=== PATIENT | female | born 1980 | race African-American/Black ===

== ENCOUNTER 2018-12-06 04:17 | Observation (INO) | payer BC ==
[2018-12-06] VITALS (9 sets, daily range): BP systolic 107–139; BP diastolic 60–85; Ht 154.9 cm; Wt 110.9 kg
[~2018-12-06] VITALS: Ht 154.9 cm; Wt 110.9 kg
[2018-12-06] MEDS ORDERED: LOSARTAN/HCTZ (04:28)
[2018-12-06] MEDS ORDERED: TOPAMAX50 MG PO (04:29)
[2018-12-06] MEDS ORDERED: BETAGAN 0.5% OPH5 ML EACH EYE (04:29)
[2018-12-06] MEDS ORDERED: XALATAN 0.0052.5 ML EACH EYE (04:30)
[2018-12-06 04:44] LABS: BASOPHILS 0.2 % (0-2); EOSINOPHILS 0.4 % (0-7); HEMATOCRIT 34.2 % (36.0-48.0); HEMOGLOBIN 11.5 g/dL (12-16); IMMATURE GRANULOCYTES 0.1 % (0-5); MCH 28.2 pg (26.0-34.0); MCHC 33.6 g/dL (31.0-37.0); MCV 83.8 fL (80.0-100.0); MEAN PLATELET VOLUME 8.7 fL (7.4-10.4); MONOCYTES 4.2 % (2-11); NEUTROPHILS 73.1 % (40-80); PLATELET COUNT 372 10x3/uL (130-400); RBC 4.08 10x6/uL (4.00-5.40); RDW 15.6 % (11.5-14.5); WBC 11.4 10x3/uL (4.8-10.8)
--- NOTE | 2018-12-06 04:48 | NUR ---
FIRST NIRTO ADMINISTERED CP RATED 4/10
--- NOTE | 2018-12-06 04:58 | NUR ---
SECOND NITRO ADMINISTERED RATES PAIN 2/10.
[2018-12-06 05:00] LABS: APTT 31.5 SECONDS (22.8-39.4); INR 1.06 (0.85-1.17); PROTIME 13.3 SECONDS (11.6-15.0)
[2018-12-06 05:02] LABS: ALBUMIN 4.1 g/dL (3.4-5.0); ALKALINE PHOSPHATASE 73 U/L (46-116); ALT (SGPT) 19 U/L (10-68); BILIRUBIN - TOTAL 0.53 mg/dL (0.2-1.3); CALC OSMOLALITY 282 mosm/kg (275-300); CALCIUM 8.9 mg/dL (8.5-10.1); CARBON DIOXIDE 24.4 mmol/L (21.0-32.0); CHLORIDE - SERUM 103 mmol/L (98-107); GLUCOSE 131 mg/dL (74-106); POTASSIUM - SERUM 3.2 mmol/L (3.5-5.1); PROTEIN - SERUM 8.7 g/dL (6.4-8.2); SODIUM 140 mmol/L (136-145); UREA NITROGEN 18 mg/dL (7-18); eGFR NON AFRICAN AMERICAN 65 mL/min (90-120)
--- NOTE | 2018-12-06 05:05 | NUR ---
3RD NITRO HELD, NO CHEST PAIN AT THIS TIME.
[2018-12-06 05:12] LABS: CKMB 1.3 U/L (0.0-3.6); CREATINE KINASE 199 UL (21-215); MAGNESIUM - SERUM 1.8 mg/dL (1.8-2.4); TROPONIN-I < 0.017 ng/mL (0.000-0.060)
--- NOTE | 2018-12-06 06:25 | NUR ---
lab at bedside. pt denies needs, call light within reach, will continue to monitor.
--- NOTE | 2018-12-06 07:06 | NUR ---
BEDSIDE REPORT HANDED OFF TO EVETTE DIAZ
--- NOTE | 2018-12-06 14:03 | NUR ---
PT TO STRESS TEST AT 1400
--- NOTE | 2018-12-06 14:03 | NUR ---
PT TO BE ADMITTED TO ROOM 2114. ATTEMPTED TO CALL REPORT X 2.
--- NOTE | 2018-12-06 14:09 | NUR ---
REPORT TO EVETTE NICHOLS.
[2018-12-06] MEDS ORDERED: COZAAR50 MG PO (14:42)
[2018-12-06] MEDS ORDERED: HYDROCHLOROTH12.5 M1 PO (14:43)
--- NOTE | 2018-12-06 15:15 | MORECARE ---
CASE MANAGEMENT DISCHARGE SUMMARY PATIENT: JANESSA SOMERS UNIT: [id number] ADM DATE: 12/06/18 AGE: 38 : 76 SEX: F ROOM/BED: D.6786 AUTHOR: LUCY FINLEY PHYSICIAN: REFERRING PHYSICIAN: PAM NEWBY MD DATE OF SERVICE: 12/06/18 Discharge Plan Patient Name: JANESSA SOMERS Facility: [facility]:[place] : 1980 Planned Disposition: Home Anticipated Discharge Date: 12/06/18 Discharge Date: Expected LOS: 1 Initial Reviewer: [email or web address] Initial Review Date: 12/06/2018 Generated: 12/06/18 4:15 pm Patient Name: JANESSA SOMERS Page [id number] at 1515 All edits/amendments must be made on the electronic document DICTATION DATE: 12/06/18 [address] INSPECTOR: ROSALEE 12/06/18 1515 RPT#: [id number] DC DATE: STATUS: ADM IN [facility] [address] [place] [address] END OF REPORT
--- NOTE | 2018-12-06 15:35 | NUR ---
PT BED RETURNED FROM STRESS TEST. PATIENT NOT IN ROOM.
--- NOTE | 2018-12-06 16:04 | NUR ---
IV AND TELEMETRY DCD. DC PLANS GIVEN. UNDERSTANDING VOICED. ESCORTED TO CAR BY W/C.
[2018-12-07 15:10] LABS: SPE - A/G RATIO 0.9 (0.7-1.7); SPE - ALBUMIN 3.7 g/dL (2.9-4.4); SPE - ALPHA-1 GLOBULIN 0.3 g/dL (0.0-0.4); SPE - ALPHA-2 GLOBULIN 0.8 g/dL (0.4-1.0); SPE - BETA GLOBULIN 1.3 g/dL (0.7-1.3); SPE - GAMMA GLOBULIN 1.7 g/dL (0.4-1.8); SPE - M-SPIKE Not Observed g/dL (Not Observed); SPE - TOTAL PROTEIN 7.8 g/dL (6.0-8.5)
--- NOTE | 2018-12-08 09:14 | CN ---
PATIENT NAME:JANESSA SOMERS MEDICAL RECORD: [id number] : 76 LOCATION:[facility] D.2115 ADMIT DATE: 12/06/18 ACCOUNT: [id number] CONSULTING PHYSICIAN: DOMENICA ZELAYA MD REFERRING PHYSICIAN: PAM NEWBY MD DATE OF CONSULTATION: 12/06/2018 DATE OF CONSULTATION: 12/06/2018 ADMITTING DIAGNOSES: 1. Chest pain. 2. Hypertension. 3. Family history of coronary artery disease. HISTORY OF PRESENT ILLNESS: Mrs. Somers was at work last night. She is a nurse in labor and delivery. She began having chest pain yesterday afternoon at 2:30. The chest pain got more severe when she was at work. She was given 2 sublingual nitro by nursing, has resolution of her chest pain. She then presented to the Emergency Room. She has had no recurrences of the chest pain. Her EKG is normal. Troponin is normal. She has a family history of hypertension and coronary artery disease. She herself has hypertension. No other medical problems. FAMILY HISTORY: Positive for hypertension. Positive for coronary artery disease. SOCIAL HISTORY: She is a nonsmoker, nondrinker, [place] [facility] [place] [place] as a nurse at [employer]. REVIEW OF SYSTEMS: The patient reports easy bruising but reports no swollen glands. The patient reports no fever, no night sweats, no significant weight gain, no significant weight loss. No significant exercise tolerance. The patient reports no dry eyes, no irritation, no vision change. Patient reports no difficulty hearing and no ear pain. Patient reports no frequent nose bleeds or nose and sinus problems. Patient reports no arm pain on exertion. No shortness of breath while lying down. No history of heart murmur. Patient reports no cough, no wheezing or coughing up blood. Patient reports no abdominal pain, no vomiting. Normal appetite. No diarrhea and not vomiting blood. No nausea and no constipation. Patient reports no incontinence. No difficulty urinating. No hematuria. No increased frequency. Patient reports no muscle aches. No weakness, no arthralgias, no back pain. No swelling of the extremities. Patient reports no abnormal mole, no jaundice, no rashes. Reports no loss of consciousness. No weakness and no numbness. No seizures, dizziness, or headaches. The patient reports no depression, no sleep disturbance, feeling safe in a relationship and no alcohol abuse. Patient reports on fatigue. Reports no runny nose or sinus pressure. No itching, no hives, and no frequent sneezing. PHYSICAL EXAMINATION: CONSTITUTIONAL/GENERAL APPEARANCE: Well nourished, well developed, appears stated age. EYES: Lids and conjunctivae noninjected. No discharge. No pallor. ENT: Lips within normal limit. No cyanosis. No pallor. NECK: Carotid arteries, bilateral normal upstroke. No bruits. No thrills. No jugular venous pressure or distention. CONSULT REPORT [id number] JANESSA SOMERS CERVICAL LYMPH NODES: Nontender. Nonenlarged. THYROID: Not enlarged. No nodules. CARDIOVASCULAR: Precordial exam, nondisplaced. No heaves or pericardial thrills. Rate and rhythm, regular. Heart sounds, normal S1, normal S2. No S3, no gallop, no rub. Systolic murmur, not heard. Diastolic murmur, not heard. RESPIRATORY: Respiratory effort, unlabored. Normal curvature. No thoracic deformity. No chest wall tenderness. Percussion, resonant. Auscultation, clear. No wheezes, no rales, no rhonchi. ABDOMEN: Soft, nondistended, nontender. No abdominal pain, no vomiting and normal appetite. MUSCULOSKELETAL: No joint tenderness, normal gait, normal tone. SKIN: Warm and dry. OVERALL IMPRESSION: Chest pain, unknown etiology of the chest pain; however, she has a normal troponin, normal EKG and she is only 38 years old. She has not had an oophorectomy and is a nonsmoker, low likelihood of hemodynamically significant coronary artery disease because she has a normal EKG and is able to exercise on a stress test. We will do an exercise stress test for risk stratification. TRANSINT:[id number] Voice Confirmation ID: [id number] DOCUMENT ID: [id number] DOMENICA ZELAYA MD at 0914 CC: [id number] DICTATION DATE: 12/06/18 1345 SENIOR PRINCIPAL PROCESS ENGINEER: 12/06/18 2249 DIS IN 12/06/18 [facility] [address] [place] [address]
--- NOTE | 2018-12-08 09:14 | ST ---
PATIENT:JANESSA SOMERS MEDICAL RECORD: [id number] SEX: F LOCATION:[address] ORDER #: ADMISSION DATE: 12/06/18 AGE OF PATIENT: 38 REFERRING PHYSICIAN: INTERPRETING PHYSICIAN: DOMENICA ZELAYA MD DATE OF SERVICE: 12/06/2018 Exercise Stress Test INDICATIONS: Chest pain of unknown etiology. DESCRIPTION OF THE PROCEDURE: She was exercised under standard Mo protocol for 5 minutes achieving greater than 100% max target heart rate response with no EKG changes, no dysrhythmias, no chest pain. OVERALL IMPRESSION: Negative for inducible ischemia at adequate cardiac workload. TRANSINT:[id number] Voice Confirmation ID: [id number] DOCUMENT ID: [id number] DOMENICA ZELAYA MD at 0914 CC: [id number] DICTATION DATE: 12/06/18 1417 SECURITY AND COMPLIANCE PROJECT MANAGER: 12/07/18 0505 DIS IN 12/06/18 [facility] [address] [place] [address]
== END 2018-12-06 16:04 | disposition home or self-care (01) ==
LOC: D.ER 04:17 → OBSVTIME 13:24 → D.M2 13:24
PROVIDERS: Emergency Medicine; ADMIT Internal Medicine Nephrology; ATTEND Internal Medicine Nephrology
DX: R07.9 Chest pain, unspecified (principal); I10 Essential (primary) hypertension; Z82.49 Family history of ischemic heart disease and other diseases of the circulatory system; D64.9 Anemia, unspecified; E88.09 Other disorders of plasma-protein metabolism, not elsewhere classified